=== PATIENT | male | born 1945 | race Caucasian/White ===

== ENCOUNTER 2021-02-22 10:31 | Observation (INO) | payer OTHER ==
[~2021-02-22] VITALS: Ht 167.6 cm; Wt 79.4 kg
[~2021-02-22 10:31] MED LIST: ACET325 PO; ANDROGEL75 GM TOP; ATOR40TA PO; Aspirin EC81 MG PO; CALCA400CH PO; CARV25 PO; FURO20 PO; GLIP10 PO; HYDR1TAB94 PO; HYDRA25 PO; INSULANPEN SC; ISOMON20 PO; Ipratropium Bro15 ML; LORATADINE PO; Prozac20 MG PO; VITAMIN C500 M1 PO
[2021-02-22] MEDS ORDERED: ALLO300 PO (10:54)
[2021-02-22] MEDS ORDERED: ATOR10 PO (10:55)
[2021-02-22] MEDS ORDERED: Norvasc2.5 MG PO (10:55)
[2021-02-22] MEDS ORDERED: CARV25 PO (10:55)
[2021-02-22] MEDS ORDERED: PROZAC20 M3 PO (10:56)
[2021-02-22] MEDS ORDERED: Isosorbide Mono60 MG PO (10:57)
[2021-02-22] MEDS ORDERED: BASAGLAR K100 UNIT/5 SC (10:57)
[2021-02-22] MEDS ORDERED: LIDOCAINE1 EACH TD (10:57)
[2021-02-22] MEDS ORDERED: ASPIR 8181 M1 PO (10:58)
[2021-02-22] MEDS ORDERED: Flomax0.4 MG PO (10:58)
[2021-02-22] MEDS ORDERED: LOPE2C PO (10:58)
[2021-02-22] MEDS ORDERED: TORSE20 PO (10:58)
[2021-02-22] MEDS ORDERED: CALCIUM 500 MG1 EAC6 PO (10:59)
[2021-02-22 11:20] LABS: BASOPHILS ABSOLUTE AUTO 0.04 K/mm3 (0.00-0.23); BASOPHILS PERCENT AUTO 0 % (0-2); EOSINOPHILS ABSOLUTE AUTO 0.05 K/mm3 (0.00-0.68); EOSINOPHILS PERCENT AUTO 0 % (0-6); Hematocrit 28.4 % (37.0-53.0); Hemoglobin 9.2 g/dL (13.5-17.5); IMMATURE GRAN ABSOLUTE AUTO 0.23 K/mm3 (0.00-0.10); IMMATURE GRAN PERCENT AUTO 2 % (0-1); LYMPHOCYTES ABSOLUTE AUTO 0.84 K/mm3 (0.84-5.20); LYMPHOCYTES PERCENT AUTO 7 % (21-46); MONOCYTES ABSOLUTE AUTO 0.62 K/mm3 (0.16-1.47); MONOCYTES PERCENT AUTO 5 % (4-13); Mean Corpuscular HGB 28.9 pg (26.0-34.0); Mean Corpuscular HGB Conc 32.4 g/dL (31.5-36.5); Mean Corpuscular Volume 89 fL (80-100); Mean Platelet Volume 12.6 fL (9.1-12.4); NEUTROPHILS ABSOLUTE AUTO 10.92 K/mm3 (1.96-9.15); NEUTROPHILS PERCENT AUTO 86 % (41-73); NRBC ABSOLUTE 0.03 K/mm3 (0.00-0.02); NRBC Auto 0.2 /100 WBC (0.0-0.2); Platelet Count 163 K/mm3 (150-400); RDW Coefficient Variation 15.7 % (11.7-14.2); RDW Standard Deviation 51.6 fL (35.1-46.3); Red Blood Cell Count 3.18 M/mm3 (4.30-5.90)
[2021-02-22 11:29] LABS: Alanine Aminotransfer (ALT/SGP 18 U/L (12-78); Albumin, Blood 2.8 g/dL (3.4-5.0); Albumin/Globulin Ratio 0.9 (0.8-1.8); Alk Phos 51 U/L (50-136); Anion Gap 9 mmol/L (6-16); Aspartate Aminotrans (AST/SGOT 11 U/L (12-37); Bilirubin, Total 0.6 mg/dL (0.1-1.0); Blood Urea Nitrogen 92 mg/dL (8-24); Bun/Creatinine Ratio 31.3 (12.0-20.0); CO2, Blood 21 mmol/L (21-32); Calcium, Blood 8.7 mg/dL (8.5-10.1); Chloride, Blood 108 mmol/L (98-108); Creatinine, Blood 2.94 mg/dL (0.60-1.20); Globulin, Blood 3.2 g/dL (2.2-4.0); Glomerular Filtration Rate 21 (60-); Glucose, Blood 217 mg/dL (70-99); Potassium, Blood 3.5 mmol/L (3.5-5.5); Sodium, Blood 138 mmol/L (136-145); Troponin I <0.015 ng/mL (0.000-0.040)
[2021-02-22 11:56] LABS: International Normalized Ratio 1.15; Prothrombin Time Results 12.3 Sec (9.7-11.5)
[2021-02-22 12:56] LABS: Source, Urine Catheter
[2021-02-22 13:26] LABS: Appearance, Urine Clear (Clear); Bilirubin, Urine Neg (Neg); Blood, Urine Neg (Neg); Color, Urine Yellow (P-Yellow); Glucose Qualitative, Urine Neg (Neg); Ketones, Urine Neg (Neg); Leukocyte Esterase, Urine Neg (Neg); Nitrite, Urine Neg (Neg); Protein, Urine 2+ (Neg); Specific Gravity, Urine 1.015 (1.003-1.022); Urobilinogen, Urine NORM (Normal)
[2021-02-22 13:33] LABS: Bacteria Rare /hpf; Red Blood Cells, Urine 0-2 /hpf (0-2); Squamous Epithelial Cells Rare /hpf (Few); White Blood Cells, Urine 0-2 /hpf (0-5)
[2021-02-22] MEDS ORDERED: DICLOFENAC SOD100 G1 TOP (14:48)
[2021-02-22] MEDS ORDERED: NOVOLOG FL100 UNIT/3 SC (14:56)
[2021-02-22] MEDS ORDERED: IPRATROPIUM BRO30 ML (15:04)
[2021-02-22 15:33] LABS: Prostate Specific Antigen <0.010 ng/mL (0.000-4.000)
--- NOTE | 2021-02-22 20:40 | NUR ---
DR. BOSCH IN ROOM TO ASSESS PT. MEDICAL RECORDS REQUESTED FROM [facility] PER ORDERS. PT OK TO HAVE FULL LIQS OVER NIGHT. DIET WILL CHANGE TO WATER ONLY AT 0600 THEN NPO AT NOON FOR UPPER EGD.
[2021-02-23 01:58] LABS: SARS-Cov-2 (COVID-19) PCR, MMC NEGATIVE (NEGATIVE)
[2021-02-23 04:49] LABS: BASOPHILS ABSOLUTE AUTO 0.04 K/mm3 (0.00-0.23); BASOPHILS PERCENT AUTO 1 % (0-2); EOSINOPHILS ABSOLUTE AUTO 0.11 K/mm3 (0.00-0.68); EOSINOPHILS PERCENT AUTO 1 % (0-6); Hematocrit 25.9 % (37.0-53.0); IMMATURE GRAN ABSOLUTE AUTO 0.14 K/mm3 (0.00-0.10); IMMATURE GRAN PERCENT AUTO 2 % (0-1); LYMPHOCYTES ABSOLUTE AUTO 0.76 K/mm3 (0.84-5.20); LYMPHOCYTES PERCENT AUTO 9 % (21-46); MONOCYTES ABSOLUTE AUTO 0.45 K/mm3 (0.16-1.47); MONOCYTES PERCENT AUTO 5 % (4-13); Mean Corpuscular HGB 28.6 pg (26.0-34.0); Mean Corpuscular HGB Conc 30.9 g/dL (31.5-36.5); Mean Corpuscular Volume 93 fL (80-100); Mean Platelet Volume 12.2 fL (9.1-12.4); NEUTROPHILS ABSOLUTE AUTO 6.78 K/mm3 (1.96-9.15); NEUTROPHILS PERCENT AUTO 82 % (41-73); NRBC ABSOLUTE 0.03 K/mm3 (0.00-0.02); NRBC Auto 0.4 /100 WBC (0.0-0.2); Platelet Count 158 K/mm3 (150-400); RDW Coefficient Variation 15.9 % (11.7-14.2); RDW Standard Deviation 54.4 fL (35.1-46.3); White Blood Cell Count 8.28 K/mm3 (4.00-11.30)
--- NOTE | 2021-02-23 04:49 | NUR ---
SHIFT SUMMARY: PT HAS BEEN STABLE THROUGHOUT SHIFT. A&O X4. VS WNL. CBG'S STABLE W/O Q6 COVERAGE NEEDED. PT REPORTS PAIN IN RIGHT SIDE ABD, BUT TOLERABLE. MOORE CATHETER INSERTED IN BEGINNING OF SHIFT PER ORDERS AND IS DRAINING CLEAR YELLOW URINE. IVF INFUSING PER EMAR. PLAN FOR SIPS+CHIPS AFTER 0600 THEN NPO AT 1200 FOR UPPER EGD TODAY.
[2021-02-23 05:10] LABS: Albumin, Blood 2.3 g/dL (3.4-5.0); Albumin/Globulin Ratio 0.8 (0.8-1.8); Bilirubin, Total 0.4 mg/dL (0.1-1.0); Bun/Creatinine Ratio 29.2 (12.0-20.0); Calcium, Blood 8.1 mg/dL (8.5-10.1); Creatinine, Blood 2.74 mg/dL (0.60-1.20); Globulin, Blood 2.8 g/dL (2.2-4.0); Magnesium, Blood 2.6 mg/dL (1.6-2.4); Potassium, Blood 3.9 mmol/L (3.5-5.5); Total Protein, Blood 5.1 g/dL (6.4-8.2)
--- NOTE | 2021-02-23 08:27 | NUR ---
DR ADLER CALLED TO DISCUSS PT'S VS AND BP MEDS. DISCUSSED PT'S VS, LABS. REPORTS TO ORDER STAT H+H. LAB NOTIFIED.
[2021-02-23 08:43] LABS: Hematocrit 26.2 % (37.0-53.0); Hemoglobin 8.1 g/dL (13.5-17.5)
--- NOTE | 2021-02-23 15:04 | NUR ---
PT RECENTLY TO HAVE PROCEDURE. DISCUSSED PT'S STATUS.
--- NOTE | 2021-02-23 15:09 | NUR ---
PT TRANSFERED TO [facility] FROM FLOOR VIA [facility]. History, Chart, Medications and Allergies reviewed before start of procedure. Lungs clear T/O to Auscultation. Patient confirms NPO status and agrees with scheduled surgery. Pre-Op teaching done. Pt verbalizes understanding.
--- NOTE | 2021-02-23 16:38 | NUR ---
02/23/21 1638 AnjuSachi R History, Chart, Medications and Allergies reviewed before start of procedure.Patient confirms NPO status and agrees with scheduled surgery.3-LEAD EKG REVIEWED WITH PHYSICIAN PRIOR TO START OF PROCEDURE.MONITOR INTACT WITH CONTINUOUS PULSE OXIMETRY AND INTERMITTENT BP.O2 VIA N/C INTACT THROUGHOUT SEDATION/PROCEDURE. PATIENT DETERMINED TO BE ASA APPROPRIATE FOR PROPOFOL SEDATION PRIOR TO START OF PROCEDURE BY DR. BOSCH
--- NOTE | 2021-02-23 17:40 | NUR ---
PT RECENTLY BACK FROM HAVING PROCEDURE. DR BOSCH TO SEE PT. REPORTS PT MAY EAT TONIGHT. PT VSS. PT DENIES CP, SOB, N/V, DIZZINESS. PT ASSISTED WITH ADL'S. PAS PLACED. ALARM IN PLACE.
--- NOTE | 2021-02-23 17:43 | NUR ---
CALL LIGHT IN REACH
--- NOTE | 2021-02-24 04:18 | NUR ---
SHIFT SUMMARY: NO SIGNIFICANT CHANGES THIS SHIFT. PT S/P UPPER EGD. DENIES ABD PAIN T/O NIGHT. TOLERATING ADA DIET AND DENIES N/V. VS WNL. MOORE PATENT AND DRAINING. PT CURRENTLY APPEARS TO BE RESTING. FLUIDS INFUSING PER EMAR. PLAN FOR PT TO START PROTONIX TODAY.
--- NOTE | 2021-02-24 18:28 | NUR ---
SHIFT SUMMARY PATIENT ALERT WHEN AWAKE THROUGHOUT SHIFT. ORIENTED. TOOK SEVERAL NAPS. DENIES ABD PAIN, TOLERATING REGULAR DIET AND FLUIDS. SALINE LOCKED. RETAINING URINE AFTER MOORE DC'D. POST VOID BLADDER SCAN SHOWED MORE THAN 640 REMAINING. STRAIGHT CATH 1000 ML OUT. PLAN TO DISCHARGE HOME TOMORROW IF URINE RETENTION RESOLVES.
--- NOTE | 2021-02-25 07:48 | NUR ---
SHIFT SUMMARY: ANIA IS A&OX4. VSS, NO ACUTE EVENTS OVERNIGHT. HE STATES THAT HE IS ABLE TO URINATE MORE AT A TIME AT HOME BECAUSE HE WAITS UNTIL HE FEELS STRONG URGENCY AND THAT AMBULATING HELPS. HE WAS AMBULATED AROUND THE ROOM AND SAT UP IN THE CHAIR, AND WAS ABLE TO URINATE 400 ML, MORE THAN HE HAD PREVIOUSLY BEEN ABLE TO URINATE DURING THE NIGHT AT ONE TIME. HE IS TOLERATING PO INTAKE WELL, DENIES ANY DIZZINESS/LIGHTHEADEDNESS OR PAIN. HE IS SITTING UP IN THE CHAIR AT THE BEDSIDE. HE DOES USE THE WALKER TO AMBULATE, STATES THAT HE USES A CANE AT HOME, STANDBY ASSIST. REPORT GIVEN TO DAY SHIFT RN.
--- NOTE | 2021-02-25 12:09 | NUR ---
DISCHARGE SUMMARY PT A&OX4, VSS, LEFT FLOOR VIA WC WITH PRODUCT MARKETING DIRECTOR TO GO HOME WITH , WITH ALL PERSONAL POSSESSIONS INCLUDING DC PACKET. DC INSTRUCTIONS PROVIDED. PT REP UNDERSTANDING THOSE INSTRUCTIONS AND FU WITH [facility] DR. DAYDAY GUNTER.
== END 2021-02-25 11:15 | disposition home or self-care (01) ==
LOC: ER 10:31 → SURS 10:32 → ERHOLD 10:32 → SURS 10:33 → ERHOLD 14:56 → SURS 14:56 → ER 14:56 → SURS 17:30 → ERHOLD 17:35 → SURS 17:35
PROVIDERS: Internal Medicine; Internal Medicine Gastroenterology; Nurse Practitioner Acute Care; Student in an Organized Health Care Education/Training Program; ADMIT Hospitalist
PROC: 0DB98ZX Excision of Duodenum, Via Natural or Artificial Opening Endoscopic, Diagnostic (ICD-10-PCS; principal; 2021-02-23 15:45)
PROC: 0DB68ZX Excision of Stomach, Via Natural or Artificial Opening Endoscopic, Diagnostic (ICD-10-PCS; principal; 2021-02-23 15:45)
DX: K26.9 Duodenal ulcer, unspecified as acute or chronic, without hemorrhage or perforation (principal); K29.80 Duodenitis without bleeding; D72.829 Elevated white blood cell count, unspecified; I13.0 Hypertensive heart and chronic kidney disease with heart failure and stage 1 through stage 4 chronic kidney disease, or unspecified chronic kidney disease; N17.9 Acute kidney failure, unspecified; I50.22 Chronic systolic (congestive) heart failure; E11.22 Type 2 diabetes mellitus with diabetic chronic kidney disease; N18.30 Chronic kidney disease, stage 3 unspecified; N40.1 Benign prostatic hyperplasia with lower urinary tract symptoms; R33.8 Other retention of urine; D62 Acute posthemorrhagic anemia; R93.3 Abnormal findings on diagnostic imaging of other parts of digestive tract; M10.9 Gout, unspecified; E78.5 Hyperlipidemia, unspecified; I25.10 Atherosclerotic heart disease of native coronary artery without angina pectoris; G47.33 Obstructive sleep apnea (adult) (pediatric); Z79.4 Long term (current) use of insulin; Z87.891 Personal history of nicotine dependence; Z86.010 Personal history of colon polyps; Z20.822 Contact with and (suspected) exposure to COVID-19
CPT/HCPCS: 36415; 51701; 74177; 80053; 81001; 82947; 83690; 83735; 84153; 84484; 85014; 85018; 85025; 85610; 85730; 88305; 88342; 93005; 93010; 96361; 96365-59; 96367; 96375; 99285-25; A9270; C9113; G0378; J0696; J2405; J2704; J3010; J7030; Q9967; U0004

== ENCOUNTER 2023-02-21 18:11 | Inpatient (IN) | payer OTHER ==
[~2023-02-21] VITALS: Ht 165.1 cm; Wt 74.5 kg
[~2023-02-21 18:11] MED LIST changes: +ALLO300 PO; +ASPIR 8181 M1 PO; +ATOR10 PO; +BASAGLAR K100 UNIT/5 SC; +CALCIUM 250-D1 EAC1 PO; +DICLOFENAC SOD100 G1 TOP; +Flomax0.4 MG PO; +IPRATROPIUM BRO30 ML; +Isosorbide Mono60 MG PO; +Keflex500 MG PO; +LIDOCAINE1 EACH TD; +LOPE2C PO; +NOVOLOG FL100 UNIT/3 SC; +Norvasc2.5 MG PO; +PROZAC20 M3 PO; +Percocet 5-3251 EACH PO; +TORS10 PO
[2023-02-21 18:56] LABS: Hematocrit 35.1 % (37.0-53.0); Hemoglobin 12.1 g/dL (13.5-17.5); Mean Corpuscular HGB 29.7 pg (26.0-34.0); Mean Corpuscular HGB Conc 34.5 g/dL (31.5-36.5); Mean Corpuscular Volume 86 fL (80-100); NRBC ABSOLUTE 0.02 K/mm3 (0.00-0.02); NRBC Auto 0.4 /100 WBC (0.0-0.2); RDW Coefficient Variation 14.6 % (11.7-14.2); RDW Standard Deviation 46.5 fL (35.1-46.3); Red Blood Cell Count 4.07 M/mm3 (4.30-5.90); White Blood Cell Count 5.35 K/mm3 (4.00-11.30)
[2023-02-21 19:14] LABS: Albumin, Blood 4.8 g/dL (3.4-5.0); Albumin/Globulin Ratio 2.2 (0.8-1.8); Bilirubin, Total 0.8 mg/dL (0.1-1.0); Bun/Creatinine Ratio 22.6 (12.0-20.0); Calcium, Blood 10.3 mg/dL (8.5-10.1); Creatinine, Blood 1.86 mg/dL (0.60-1.20); Globulin, Blood 2.2 g/dL (2.2-4.0)
[2023-02-21 19:15] LABS: Platelet Count 20 K/mm3 (150-400)
[2023-02-21 19:18] LABS: BASOPHILS PERCENT MAN 0 % (0-2); EOSINOPHILS ABSOLUTE MAN 0.21 K/mm3 (0.00-0.68); EOSINOPHILS PERCENT MAN 4 % (0-6); LYMPHOCYTES % ATYPICAL MANUAL 2 % (0-0); LYMPHOCYTES ABSOLUTE MAN 0.48 K/mm3 (0.84-5.20); LYMPHOCYTES PERCENT MAN 7 % (21-46); MONOCYTES PERCENT MAN 2 % (4-13); NEUTROPHILS ABSOLUTE MAN 4.54 K/mm3 (1.96-9.15); SEG NEUTROPHILS PERCENT MAN 85 % (41-73); TOTAL CELLS COUNTED 100
[2023-02-21 19:29] LABS: International Normalized Ratio 1.12; Prothrombin Time Results 11.7 Sec (9.7-11.5)
--- NOTE | 2023-02-21 23:39 | NUR ---
PT CHART REVIEWED FOR ADMISSION
[2023-02-22 00:15] VITALS: BP 158/57
[2023-02-22] MEDS ORDERED: ALOGLIPTIN12.5 M1 PO (00:33)
[2023-02-22] MEDS ORDERED: AZIT500 PO (00:34)
[2023-02-22] MEDS ORDERED: PROBIOTIC PO (00:36)
[2023-02-22] MEDS ORDERED: COLOSTRUM PO (00:36)
[2023-02-22] MEDS ORDERED: CAPSAICIN TOP (00:37)
[2023-02-22] MEDS ORDERED: FERSU300 PO (00:38)
[2023-02-22] MEDS ORDERED: LOPE2C PO (00:40)
[2023-02-22] MEDS ORDERED: LORA10ER PO (00:40)
[2023-02-22] MEDS ORDERED: MULTI-VITAMIN1 EAC2 PO (00:41)
[2023-02-22] MEDS ORDERED: JAKAFI15 MG PO (00:43)
[2023-02-22 04:52] VITALS: BP 165/63
--- NOTE | 2023-02-22 05:31 | NUR ---
SHIFT SUMMARY PT ARRIVED ON UNIT AT 0011 DURING DOWNTIME. NO PRESSURE INJURIES, SOME SCATTERED BRUISING. PT AAOX3. PT STATES HE NORMALLY USES A CANE FOR AMBULATION. PT UNSTEADY ON FEET REQUIRING A 1 PERSON ASSIST. NO C/O PAIN, NO STOOLS THIS SHIFT. FIRE SAFETY EDUCATION PROVIDED, NO SOURCES OF IGNITION FOUND ON Q1H FIRE SAFETY ROUNDS.
[2023-02-22 05:46] LABS: Hematocrit 31.9 % (37.0-53.0); Hemoglobin 10.8 g/dL (13.5-17.5)
[2023-02-22 06:04] VITALS: BP 142/49
[2023-02-22 07:44] VITALS: BP 151/60
[2023-02-22 11:14] LABS: Hematocrit 31.2 % (37.0-53.0); Hemoglobin 10.7 g/dL (13.5-17.5)
[2023-02-22 15:28] VITALS: BP 141/62
--- NOTE | 2023-02-22 16:20 | NUR ---
SHIFT SUMMARY PATIENT UP WITH 1 ASSIST, UNSTEADY. BLOOD GLUCOSE MONITORING ORDERED START OF DINNER THIS SHIFT, HEMATOLOGY CONSULT CALLED IN PER DR SAUCEDO ORDERS. C/O HEADACHE SEVERAL TIMES THIS SHIFT, MODERATE RELIEF WITH MEDICATIONS AND RESTFUL PERIODS. PROTONIX DRIP CONTINUES. WILL CONTINUE TO MONITOR
[2023-02-22 17:49] LABS: Hematocrit 30.2 % (37.0-53.0); Hemoglobin 10.1 g/dL (13.5-17.5)
[2023-02-22 20:04] VITALS: BP 125/57
[2023-02-22 23:43] LABS: Hematocrit 29.9 % (37.0-53.0)
[2023-02-23 04:44] VITALS: BP 123/59
[2023-02-23 05:25] LABS: BASOPHILS ABSOLUTE AUTO 0.02 K/mm3 (0.00-0.23); BASOPHILS PERCENT AUTO 0 % (0-2); EOSINOPHILS ABSOLUTE AUTO 0.11 K/mm3 (0.00-0.68); EOSINOPHILS PERCENT AUTO 2 % (0-6); Hematocrit 28.3 % (37.0-53.0); Hemoglobin 9.7 g/dL (13.5-17.5); IMMATURE GRAN ABSOLUTE AUTO 0.04 K/mm3 (0.00-0.10); IMMATURE GRAN PERCENT AUTO 1 % (0-1); LYMPHOCYTES ABSOLUTE AUTO 0.44 K/mm3 (0.84-5.20); LYMPHOCYTES PERCENT AUTO 7 % (21-46); MONOCYTES ABSOLUTE AUTO 0.33 K/mm3 (0.16-1.47); MONOCYTES PERCENT AUTO 5 % (4-13); Mean Corpuscular HGB 29.5 pg (26.0-34.0); Mean Corpuscular HGB Conc 34.3 g/dL (31.5-36.5); Mean Corpuscular Volume 86 fL (80-100); NEUTROPHILS ABSOLUTE AUTO 5.28 K/mm3 (1.96-9.15); NEUTROPHILS PERCENT AUTO 85 % (41-73); NRBC ABSOLUTE 0.02 K/mm3 (0.00-0.02); NRBC Auto 0.3 /100 WBC (0.0-0.2); RDW Coefficient Variation 14.7 % (11.7-14.2); RDW Standard Deviation 46.5 fL (35.1-46.3); Red Blood Cell Count 3.29 M/mm3 (4.30-5.90); White Blood Cell Count 6.22 K/mm3 (4.00-11.30)
[2023-02-23 05:41] LABS: Platelet Count 20 K/mm3 (150-400)
[2023-02-23 05:56] LABS: Albumin, Blood 3.7 g/dL (3.4-5.0); Anion Gap 6 mmol/L (6-16); Blood Urea Nitrogen 40 mg/dL (8-24); Bun/Creatinine Ratio 18.7 (12.0-20.0); CO2, Blood 22 mmol/L (21-32); Calcium, Blood 8.5 mg/dL (8.5-10.1); Chloride, Blood 111 mmol/L (98-108); Creatinine, Blood 2.14 mg/dL (0.60-1.20); Glomerular Filtration Rate 31 (60-); Glucose, Blood 171 mg/dL (70-99); Phosphorus, Blood 3.4 mg/dL (2.5-4.9); Potassium, Blood 4.5 mmol/L (3.5-5.5); Sodium, Blood 139 mmol/L (136-145)
--- NOTE | 2023-02-23 06:18 | NUR ---
SHIFT SUMMARY NO EVENTS OR COMPLAINTS OVERNIGHT. Q1H FIRE SAFETY CHECKS COMPLETED. NO IGNITION SOURCES FOUND
[2023-02-23 07:36] VITALS: BP 121/58
[2023-02-23] MEDS ORDERED: Norco 5-325 Ta1 EACH PO (09:10)
[2023-02-23] MEDS ORDERED: PANT40 PO (09:10)
== END 2023-02-23 11:22 | disposition home or self-care (01) | DRG 378 ==
LOC: ER 18:11 → MEDS 18:12 → ENPENDDIS 02-23 09:16 → MEDS 02-23 11:22
PROVIDERS: Emergency Medicine; Family Medicine; ADMIT Internal Medicine
DX: K92.1 Melena (principal); D62 Acute posthemorrhagic anemia; D75.81 Myelofibrosis; I13.0 Hypertensive heart and chronic kidney disease with heart failure and stage 1 through stage 4 chronic kidney disease, or unspecified chronic kidney disease; I50.22 Chronic systolic (congestive) heart failure; N18.4 Chronic kidney disease, stage 4 (severe); I16.0 Hypertensive urgency; E78.5 Hyperlipidemia, unspecified; M10.9 Gout, unspecified; T50.995A Adverse effect of other drugs, medicaments and biological substances, initial encounter; R51.9 Headache, unspecified; E11.22 Type 2 diabetes mellitus with diabetic chronic kidney disease; D69.59 Other secondary thrombocytopenia; I25.10 Atherosclerotic heart disease of native coronary artery without angina pectoris; N40.0 Benign prostatic hyperplasia without lower urinary tract symptoms; K26.9 Duodenal ulcer, unspecified as acute or chronic, without hemorrhage or perforation; M19.90 Unspecified osteoarthritis, unspecified site; I25.2 Old myocardial infarction; Z79.899 Other long term (current) drug therapy; Z79.4 Long term (current) use of insulin; Z79.891 Long term (current) use of opiate analgesic; Z79.2 Long term (current) use of antibiotics; Z90.49 Acquired absence of other specified parts of digestive tract; Z98.890 Other specified postprocedural states; Z87.891 Personal history of nicotine dependence; Z90.5 Acquired absence of kidney; Z86.018 Personal history of other benign neoplasm; Z85.828 Personal history of other malignant neoplasm of skin; Z86.16 Personal history of COVID-19; Z88.8 Allergy status to other drugs, medicaments and biological substances
CPT/HCPCS: 36415; 70450; 70496; 70498; 80053; 80069; 82947; 85014; 85018; 85025; 85610; 85730; 86316; 86850; 86900; 86901; 93005; 93010; 96374; 96375; 96376; 99285-25; A9270; C9113; G0378; J0780; J1200; J1815; Q9967

== ENCOUNTER 2023-04-25 17:23 | Inpatient (IN) | payer OTHER ==
[~2023-04-25] VITALS: Ht 165.1 cm; Wt 78.0 kg
[~2023-04-25 17:23] MED LIST changes: +ALOGLIPTIN12.5 M1 PO; +AZIT500 PO; +CAPSAICIN TOP; +COLOSTRUM PO; +FERSU300 PO; +JAKAFI15 MG PO; +LORA10ER PO; +MULTI-VITAMIN1 EAC2 PO; +Norco 5-325 Ta1 EACH PO; +PANT40 PO; +PROBIOTIC PO
[2023-04-25] MEDS ORDERED: JARDIANCE10 MG PO (18:37)
[2023-04-25] MEDS ORDERED: LOPE2C PO (18:39)
[2023-04-25] MEDS ORDERED: JAKAFI10 MG PO (18:39)
[2023-04-25 18:45] LABS: BASOPHILS ABSOLUTE AUTO 0.06 K/mm3 (0.00-0.23); BASOPHILS PERCENT AUTO 1 % (0-2); EOSINOPHILS ABSOLUTE AUTO 0.11 K/mm3 (0.00-0.68); EOSINOPHILS PERCENT AUTO 2 % (0-6); Hematocrit 24.1 % (37.0-53.0); Hemoglobin 7.9 g/dL (13.5-17.5); IMMATURE GRAN ABSOLUTE AUTO 0.06 K/mm3 (0.00-0.10); IMMATURE GRAN PERCENT AUTO 1 % (0-1); LYMPHOCYTES ABSOLUTE AUTO 1.38 K/mm3 (0.84-5.20); LYMPHOCYTES PERCENT AUTO 23 % (21-46); MONOCYTES ABSOLUTE AUTO 0.29 K/mm3 (0.16-1.47); MONOCYTES PERCENT AUTO 5 % (4-13); Mean Corpuscular HGB 29.8 pg (26.0-34.0); Mean Corpuscular HGB Conc 32.8 g/dL (31.5-36.5); Mean Corpuscular Volume 91 fL (80-100); Mean Platelet Volume 9.9 fL (9.1-12.4); NEUTROPHILS ABSOLUTE AUTO 4.04 K/mm3 (1.96-9.15); NEUTROPHILS PERCENT AUTO 68 % (41-73); NRBC ABSOLUTE 0.16 K/mm3 (0.00-0.02); NRBC Auto 2.7 /100 WBC (0.0-0.2); Platelet Count 134 K/mm3 (150-400); RDW Coefficient Variation 20.1 % (11.7-14.2); RDW Standard Deviation 65.1 fL (35.1-46.3); Red Blood Cell Count 2.65 M/mm3 (4.30-5.90); White Blood Cell Count 5.94 K/mm3 (4.00-11.30)
[2023-04-25 19:24] LABS: Albumin/Globulin Ratio 1.8 (0.8-1.8); Bilirubin, Total 0.6 mg/dL (0.1-1.0); Bun/Creatinine Ratio 13.6 (12.0-20.0); Calcium, Blood 9.2 mg/dL (8.5-10.1); Creatinine, Blood 2.2 mg/dL (0.60-1.20); Globulin, Blood 2.2 g/dL (2.2-4.0); Potassium, Blood 4.5 mmol/L (3.5-5.5); Total Protein, Blood 6.2 g/dL (6.4-8.2)
[2023-04-26 01:00] LABS: Hematocrit 25.2 % (37.0-53.0)
[2023-04-26 04:21] VITALS: BP 148/65
--- NOTE | 2023-04-26 04:55 | NUR ---
SHIFT SUMMARY ANIA ARRIVED FROM THE ED AROUND 0230. HE WAS ALERT AND FULLY ORIENTED AND ABLE TO SELF TRANSFER TO BED. HE IS ON 2L VIA NC, AND MAINTAINING SATURATIONS ABOVE 90%. PT DIURESING, HE IS CONTINENT OF URINE, INTERMITTENT INCONTINENCE OF BOWELS. 1 PERSON STANDBY ASSIST. PT IS PLEASANT AND COOPERATIVE AND HAD NO ACUTE EVENTS OR COMPLAINTS THIS SHIFT. FLU VACCINE ADMINISTERED. PT RESTING IN BED WITH CALL LIGHT IN REACH.
[2023-04-26 05:38] LABS: BASOPHILS ABSOLUTE AUTO 0.05 K/mm3 (0.00-0.23); BASOPHILS PERCENT AUTO 1 % (0-2); EOSINOPHILS ABSOLUTE AUTO 0.09 K/mm3 (0.00-0.68); EOSINOPHILS PERCENT AUTO 2 % (0-6); Hematocrit 23.4 % (37.0-53.0); Hemoglobin 7.5 g/dL (13.5-17.5); IMMATURE GRAN ABSOLUTE AUTO 0.08 K/mm3 (0.00-0.10); IMMATURE GRAN PERCENT AUTO 2 % (0-1); LYMPHOCYTES ABSOLUTE AUTO 0.68 K/mm3 (0.84-5.20); LYMPHOCYTES PERCENT AUTO 13 % (21-46); MONOCYTES ABSOLUTE AUTO 0.29 K/mm3 (0.16-1.47); MONOCYTES PERCENT AUTO 6 % (4-13); Mean Corpuscular HGB 29.2 pg (26.0-34.0); Mean Corpuscular HGB Conc 32.1 g/dL (31.5-36.5); Mean Corpuscular Volume 91 fL (80-100); Mean Platelet Volume 9.3 fL (9.1-12.4); NEUTROPHILS ABSOLUTE AUTO 3.89 K/mm3 (1.96-9.15); NEUTROPHILS PERCENT AUTO 77 % (41-73); Platelet Count 110 K/mm3 (150-400); RDW Coefficient Variation 19.9 % (11.7-14.2); RDW Standard Deviation 65.3 fL (35.1-46.3); Red Blood Cell Count 2.57 M/mm3 (4.30-5.90); White Blood Cell Count 5.08 K/mm3 (4.00-11.30)
[2023-04-26 06:06] LABS: Albumin, Blood 3.9 g/dL (3.4-5.0); Bilirubin, Total 0.7 mg/dL (0.1-1.0); Creatinine, Blood 2.15 mg/dL (0.60-1.20); Potassium, Blood 4.2 mmol/L (3.5-5.5); Total Protein, Blood 5.9 g/dL (6.4-8.2)
[2023-04-26 07:23] VITALS: BP 164/65
[2023-04-26 09:53] LABS: Percent Saturation 24.6 % (20.0-50.0)
[2023-04-26 11:31] LABS: Hematocrit 23.8 % (37.0-53.0); Hemoglobin 7.6 g/dL (13.5-17.5)
[2023-04-26 15:18] VITALS: BP 157/62
--- NOTE | 2023-04-26 17:14 | NUR ---
CALLED DR SAUCEDO- PT HERE FOR ACUTE RESP FAILURE WITH HYPOXIA. NOTED IV LASIX ORDERED ALTHOUGH FIRST DDOSE DOCUMENTED HELD PER DR REDD. NEXT DOSE SCHEDULED FOR TOMORROW MORNING AT 09[address]. SPOKE [address] DR SAUCEDO PT HAS NOT RECIEVED A DOSE TODAY AND RECIEVED AN ORDER FOR OT DOSE OF IV LASIX NOW.
[2023-04-26 17:25] VITALS: BP 156/55
[2023-04-26 17:28] LABS: Hematocrit 24.2 % (37.0-53.0); Hemoglobin 7.9 g/dL (13.5-17.5)
--- NOTE | 2023-04-26 18:10 | NUR ---
SHIFT SUMMARY- PPT ALERT, ORIENTED ANND INDEPENDENT IN THE ROOM. IV LASIX GIVEN THIS EVENING PER DR ORDER. DELAYED 1700 DOSE OF CARVEDILOL TO SEE IF HIS BP WOULD SUSTAIN WITH THE IV LASIX. PT IS CURRENTLY SITTING UP IN BED EATING DINNER NO S&S OF DISTRESS, SPOUSE AT THE BEDSIDE.
[2023-04-26 18:11] VITALS: BP 157/58
[2023-04-26 19:41] VITALS: BP 145/54
[2023-04-27] VITALS (12 sets, daily range): BP systolic 136–157; BP diastolic 49–62
--- NOTE | 2023-04-27 04:32 | NUR ---
PATIENT IS A/Ox4, PLEASANT/COOPERATIVE. NO C/O PAIN NOR DISCOMFORT STATED. VSS, SpO2 94% ON 2L VIA NC. IS INDEPENDENT IN ROOM. STATES HE DOES GET SOB AT TIMES WHEN AMBULATING. USES URINAL, LIGHT YELLOW OUTPUT. ON TELE, NORMAL SINUS IN 70-80s WITH 1 DEGREE HB. NO ACUTE CHANGES NOTED OVERNIGHT. BED LOCKED AND IN LOWEST POSITION, CALL LIGHT WITHIN REACH.
[2023-04-27 06:19] LABS: BASOPHILS ABSOLUTE AUTO 0.03 K/mm3 (0.00-0.23); BASOPHILS PERCENT AUTO 1 % (0-2); EOSINOPHILS ABSOLUTE AUTO 0.06 K/mm3 (0.00-0.68); EOSINOPHILS PERCENT AUTO 1 % (0-6); Hematocrit 22.2 % (37.0-53.0); Hemoglobin 7.2 g/dL (13.5-17.5); IMMATURE GRAN ABSOLUTE AUTO 0.05 K/mm3 (0.00-0.10); IMMATURE GRAN PERCENT AUTO 1 % (0-1); LYMPHOCYTES PERCENT AUTO 11 % (21-46); MONOCYTES ABSOLUTE AUTO 0.37 K/mm3 (0.16-1.47); MONOCYTES PERCENT AUTO 8 % (4-13); Mean Corpuscular HGB Conc 32.4 g/dL (31.5-36.5); Mean Corpuscular Volume 93 fL (80-100); Mean Platelet Volume 9.6 fL (9.1-12.4); NEUTROPHILS ABSOLUTE AUTO 3.42 K/mm3 (1.96-9.15); NEUTROPHILS PERCENT AUTO 77 % (41-73); NRBC ABSOLUTE 0.06 K/mm3 (0.00-0.02); NRBC Auto 1.4 /100 WBC (0.0-0.2); Platelet Count 84 K/mm3 (150-400); RDW Coefficient Variation 19.5 % (11.7-14.2); RDW Standard Deviation 65.9 fL (35.1-46.3); White Blood Cell Count 4.43 K/mm3 (4.00-11.30)
[2023-04-27 07:02] LABS: Albumin, Blood 3.6 g/dL (3.4-5.0); Anion Gap 5 mmol/L (6-16); Blood Urea Nitrogen 39 mg/dL (8-24); Bun/Creatinine Ratio 16.9 (12.0-20.0); CO2, Blood 28 mmol/L (21-32); Calcium, Blood 9.4 mg/dL (8.5-10.1); Chloride, Blood 111 mmol/L (98-108); Creatinine, Blood 2.31 mg/dL (0.60-1.20); Glomerular Filtration Rate 28 (60-); Glucose, Blood 143 mg/dL (70-99); Phosphorus, Blood 3.6 mg/dL (2.5-4.9); Potassium, Blood 4.1 mmol/L (3.5-5.5); Sodium, Blood 144 mmol/L (136-145)
--- NOTE | 2023-04-27 07:25 | NUR ---
ASSUMED CARE OF PT- BEDSIDE REPORT COMPLETED WITH NELY TAI. PT IN BED, WOKE TO STAFF VOICES ALEXANDER PARTICIPATED IN BEDSIDE REPORT. PT VOIDED FREQUENTLY T/OO THE NIGHT. HE STATES HE FEELS HE IS BREATHINGN BBETTER THIS MORNING WHEN COMPARED TO LAST NIGHT. PPT IN BED, CALL LIGHT IN REACH NO S&S ASH DISTRESS NOTED.
[2023-04-27 12:08] LABS: Hematocrit 20.6 % (37.0-53.0); Hemoglobin 6.7 g/dL (13.5-17.5)
--- NOTE | 2023-04-27 19:41 | NUR ---
SHIFT SUMMARY- PT ALERT, ORIENTED AND INDEPENDENT IN THE ROOM. PT HAD A BLOOD TRANSFUSION TODAY 1 UNIT OF PRBC'S, VS UNCHANGED NO S&S OF DISTRESS THROUGH THE WHOLE INFUSION. PT TOLLERATED THE EXTRA FLUID WELL. LUNG SOUNDS WERE UNCHANGED. BEDSIDE REPORT COMPLETED WITH THE NIGHT RN NO S&S OF DISTRESS AT THAT TIME. IV PROTONIX GIVEN SOON TRANSFUSION WAS COMPLETED.
[2023-04-28 03:24] VITALS: BP 129/61
--- NOTE | 2023-04-28 04:16 | NUR ---
SHIFT SUMMARY PT AWAKE, WATCHING TV, DURING SHIFT REPORT. DENIED NEEDS. REPORTED BEING INDEPENDENT IN RM AND TO BTHRM NEEDED; PT USING URINAL IN BATHRM. REPORTED FEELING BETTER. PER REPORT, PT RECEIVED 1 UNIT PRBC'S TODAY. LUNGS T/O WITH FINE CRACKLES IN BASES. RESTING QUIETLY MOST OF THE NIGHT, TP PRESENT. CALL LT IN REACH.
[2023-04-28 06:56] LABS: Albumin, Blood 3.5 g/dL (3.4-5.0); Anion Gap 6 mmol/L (6-16); Blood Urea Nitrogen 48 mg/dL (8-24); Bun/Creatinine Ratio 20.2 (12.0-20.0); CO2, Blood 24 mmol/L (21-32); Calcium, Blood 9.1 mg/dL (8.5-10.1); Chloride, Blood 111 mmol/L (98-108); Creatinine, Blood 2.38 mg/dL (0.60-1.20); Glomerular Filtration Rate 27 (60-); Glucose, Blood 137 mg/dL (70-99); Phosphorus, Blood 3.3 mg/dL (2.5-4.9); Potassium, Blood 4.8 mmol/L (3.5-5.5); Sodium, Blood 141 mmol/L (136-145)
[2023-04-28 07:27] LABS: BASOPHILS ABSOLUTE AUTO 0.02 K/mm3 (0.00-0.23); BASOPHILS PERCENT AUTO 1 % (0-2); EOSINOPHILS ABSOLUTE AUTO 0.04 K/mm3 (0.00-0.68); EOSINOPHILS PERCENT AUTO 1 % (0-6); Hematocrit 22.7 % (37.0-53.0); Hemoglobin 7.5 g/dL (13.5-17.5); IMMATURE GRAN ABSOLUTE AUTO 0.03 K/mm3 (0.00-0.10); IMMATURE GRAN PERCENT AUTO 1 % (0-1); LYMPHOCYTES ABSOLUTE AUTO 0.52 K/mm3 (0.84-5.20); LYMPHOCYTES PERCENT AUTO 17 % (21-46); MONOCYTES ABSOLUTE AUTO 0.32 K/mm3 (0.16-1.47); MONOCYTES PERCENT AUTO 11 % (4-13); Mean Corpuscular HGB 29.9 pg (26.0-34.0); Mean Corpuscular Volume 90 fL (80-100); NEUTROPHILS PERCENT AUTO 69 % (41-73); NRBC ABSOLUTE 0.04 K/mm3 (0.00-0.02); NRBC Auto 1.3 /100 WBC (0.0-0.2); Platelet Count 68 K/mm3 (150-400); RDW Coefficient Variation 18.2 % (11.7-14.2); RDW Standard Deviation 60.1 fL (35.1-46.3); Red Blood Cell Count 2.51 M/mm3 (4.30-5.90); White Blood Cell Count 3.03 K/mm3 (4.00-11.30)
[2023-04-28 07:30] VITALS: BP 126/56
--- NOTE | 2023-04-28 17:53 | NUR ---
DAYSHIFT SUMMARY Patient alert & oriented, no acute changes to patient status. Titrated O2 to 1lpm, sats stable. Vitals stable. Possible DC home tomorrow. Will continue plan of care.
[2023-04-28 19:18] VITALS: BP 133/54
[2023-04-29 03:04] VITALS: BP 120/53
--- NOTE | 2023-04-29 04:53 | NUR ---
SHIFT SUMMARY: PT IS ADMITTED FOR ACUTE HYPOXIC RESPIRATORY FAILURE AND IS A FULL CODE. IS ALERT AND ABLE TO MAKE NEEDS KNOWN. UP ADLIB FOR RESTROOM USE NOT ASKING FOR STAFF HELP. HE DID REPORT TO THIS LN THAT HE IS SHORT OF BREATH FOR A SHORT PERIOD AFTER A BATHROOM RUN. IS CURRENTLY ON 1LPM OF O2. DENIES ANY OTHER PAIN OR DISCOMFORT. IV TO RIGHT FOREARM IS PATENT WITH A CDI DRESSING. DAYDAY REPORTS 1ST DEG BLOCK @76.
[2023-04-29 05:26] LABS: Hematocrit 21.7 % (37.0-53.0); Hemoglobin 7.1 g/dL (13.5-17.5); Mean Corpuscular HGB 29.8 pg (26.0-34.0); Mean Corpuscular HGB Conc 32.7 g/dL (31.5-36.5); Mean Corpuscular Volume 91 fL (80-100); NRBC ABSOLUTE 0.04 K/mm3 (0.00-0.02); NRBC Auto 1.4 /100 WBC (0.0-0.2); Platelet Count 69 K/mm3 (150-400); RDW Coefficient Variation 18.3 % (11.7-14.2); RDW Standard Deviation 60.5 fL (35.1-46.3); Red Blood Cell Count 2.38 M/mm3 (4.30-5.90); White Blood Cell Count 2.85 K/mm3 (4.00-11.30)
[2023-04-29 07:28] VITALS: BP 129/55
[2023-04-29 11:12] LABS: Hematocrit 22.2 % (37.0-53.0); Hemoglobin 7.2 g/dL (13.5-17.5)
[2023-04-29 15:26] VITALS: BP 134/56
== END 2023-04-29 18:45 | disposition home or self-care (01) | DRG 291 ==
LOC: ER 17:23 → MEDS 23:14
PROVIDERS: Emergency Medicine; Family Medicine; Internal Medicine; ADMIT Internal Medicine
PROC: 30233N1 Transfusion of Nonautologous Red Blood Cells into Peripheral Vein, Percutaneous Approach (ICD-10-PCS; principal; 2023-04-25)
DX: I13.0 Hypertensive heart and chronic kidney disease with heart failure and stage 1 through stage 4 chronic kidney disease, or unspecified chronic kidney disease (principal); I50.43 Acute on chronic combined systolic (congestive) and diastolic (congestive) heart failure; J96.01 Acute respiratory failure with hypoxia; D62 Acute posthemorrhagic anemia; D61.818 Other pancytopenia; D75.81 Myelofibrosis; N17.9 Acute kidney failure, unspecified; N18.4 Chronic kidney disease, stage 4 (severe); E87.0 Hyperosmolality and hypernatremia; N40.0 Benign prostatic hyperplasia without lower urinary tract symptoms; E11.22 Type 2 diabetes mellitus with diabetic chronic kidney disease; M10.9 Gout, unspecified; F32.A Depression, unspecified; I27.20 Pulmonary hypertension, unspecified; I25.10 Atherosclerotic heart disease of native coronary artery without angina pectoris; D45 Polycythemia vera; Z98.890 Other specified postprocedural states; Z86.018 Personal history of other benign neoplasm; Z88.8 Allergy status to other drugs, medicaments and biological substances; Z79.899 Other long term (current) drug therapy; Z79.4 Long term (current) use of insulin; Z79.891 Long term (current) use of opiate analgesic; I25.2 Old myocardial infarction; Z90.49 Acquired absence of other specified parts of digestive tract; Z87.891 Personal history of nicotine dependence; Z90.5 Acquired absence of kidney; Z87.19 Personal history of other diseases of the digestive system
CPT/HCPCS: 36415; 36430; 71046; 80053; 80069; 82607; 82728; 82746; 83540; 83550; 83880; 84484; 85014; 85018; 85025; 85027; 85379; 86850; 86900; 86901; 86923; 93306; 94760; 94761; 99285-25; A9270; C9113; J1815; J1940; J7040; P9016; Q2036

== ENCOUNTER 2023-05-25 15:38 | Emergency (ER) | payer OTHER ==
[~2023-05-25] VITALS: Ht 167.6 cm; Wt 79.4 kg
[~2023-05-25 15:38] MED LIST changes: +JAKAFI10 MG PO; +JARDIANCE10 MG PO
[2023-05-25 16:18] LABS: BASOPHILS ABSOLUTE AUTO 0.02 K/mm3 (0.00-0.23); BASOPHILS PERCENT AUTO 1 % (0-2); EOSINOPHILS ABSOLUTE AUTO 0.11 K/mm3 (0.00-0.68); EOSINOPHILS PERCENT AUTO 3 % (0-6); Hematocrit 22.7 % (37.0-53.0); Hemoglobin 7.5 g/dL (13.5-17.5); IMMATURE GRAN ABSOLUTE AUTO 0.04 K/mm3 (0.00-0.10); IMMATURE GRAN PERCENT AUTO 1 % (0-1); LYMPHOCYTES PERCENT AUTO 22 % (21-46); MONOCYTES PERCENT AUTO 6 % (4-13); Mean Corpuscular HGB 30.7 pg (26.0-34.0); Mean Corpuscular Volume 93 fL (80-100); Mean Platelet Volume 9.4 fL (9.1-12.4); NEUTROPHILS ABSOLUTE AUTO 2.43 K/mm3 (1.96-9.15); NEUTROPHILS PERCENT AUTO 67 % (41-73); NRBC ABSOLUTE 0.09 K/mm3 (0.00-0.02); NRBC Auto 2.5 /100 WBC (0.0-0.2); Platelet Count 80 K/mm3 (150-400); RDW Coefficient Variation 18.7 % (11.7-14.2); RDW Standard Deviation 62.1 fL (35.1-46.3); Red Blood Cell Count 2.44 M/mm3 (4.30-5.90)
[2023-05-25 16:45] LABS: Albumin, Blood 3.6 g/dL (3.4-5.0); Albumin/Globulin Ratio 1.5 (0.8-1.8); Bilirubin, Total 0.4 mg/dL (0.1-1.0); Calcium, Blood 9.6 mg/dL (8.5-10.1); Creatinine, Blood 2.19 mg/dL (0.60-1.20); Globulin, Blood 2.4 g/dL (2.2-4.0); Potassium, Blood 4.1 mmol/L (3.5-5.5)
[2023-05-25 19:45] VITALS: BP 141/59
== END 2023-05-25 20:09 | disposition home or self-care (01) ==
LOC: ER 15:38
PROVIDERS: Physician Assistant
DX: D64.9 Anemia, unspecified (principal); Z88.8 Allergy status to other drugs, medicaments and biological substances; Z79.899 Other long term (current) drug therapy; Z79.4 Long term (current) use of insulin; M10.9 Gout, unspecified; I13.0 Hypertensive heart and chronic kidney disease with heart failure and stage 1 through stage 4 chronic kidney disease, or unspecified chronic kidney disease; N18.30 Chronic kidney disease, stage 3 unspecified; E78.5 Hyperlipidemia, unspecified; E11.22 Type 2 diabetes mellitus with diabetic chronic kidney disease; I50.22 Chronic systolic (congestive) heart failure; I25.2 Old myocardial infarction; Z87.891 Personal history of nicotine dependence
CPT/HCPCS: 71046; 80053; 83880; 84484; 85025; 86850; 86900; 86901; 93005; 93010; 99285-25

== ENCOUNTER 2023-09-01 04:56 | Day surgery (SDC) | payer OTHER ==
[2023-08-30 14:24] LABS: Hemoglobin 6.2 g/dL (13.5-17.5); Mean Corpuscular HGB 30.5 pg (26.0-34.0); Mean Corpuscular HGB Conc 32.6 g/dL (31.5-36.5); Mean Corpuscular Volume 94 fL (80-100); NRBC ABSOLUTE 0.11 K/mm3 (0.00-0.02); NRBC Auto 3.7 /100 WBC (0.0-0.2); Platelet Count 72 K/mm3 (150-400); RDW Coefficient Variation 20.5 % (11.7-14.2); RDW Standard Deviation 67.9 fL (35.1-46.3); Red Blood Cell Count 2.03 M/mm3 (4.30-5.90); White Blood Cell Count 2.94 K/mm3 (4.00-11.30)
[2023-08-30 14:32] LABS: Albumin, Blood 4.1 g/dL (3.4-5.0); Bilirubin, Total 0.8 mg/dL (0.1-1.0); Bun/Creatinine Ratio 16.3 (12.0-20.0); Calcium, Blood 9.7 mg/dL (8.5-10.1); Creatinine, Blood 2.15 mg/dL (0.60-1.20); Potassium, Blood 4.5 mmol/L (3.5-5.5); Total Protein, Blood 6.1 g/dL (6.4-8.2)
[2023-08-30 15:17] LABS: BAND PERCENT MAN 1 % (0-8); BASOPHILS PERCENT MAN 0 % (0-2); EOSINOPHILS PERCENT MAN 0 % (0-6); LYMPHOCYTES ABSOLUTE MAN 1.08 K/mm3 (0.84-5.20); LYMPHOCYTES PERCENT MAN 37 % (21-46); METAMYELOCYTE ABSOLUTE MAN 0.05 K/mm3 (0.00-0.00); METAMYELOCYTE PERCENT MAN 2 % (0-0); MONOCYTES ABSOLUTE MAN 0.05 K/mm3 (0.16-1.47); MONOCYTES PERCENT MAN 2 % (4-13); NEUTROPHILS ABSOLUTE MAN 1.73 K/mm3 (1.96-9.15); SEG NEUTROPHILS PERCENT MAN 58 % (41-73); TOTAL CELLS COUNTED 100
[2023-09-01] VITALS (7 sets, daily range): BP systolic 108–139; BP diastolic 41–61
[2023-09-01] MEDS ORDERED: NS 250 ML IV SCH (06:50)
== END 2023-09-01 17:45 | disposition home or self-care (01) ==
LOC: ATC 04:56 → EDSTATUS 07-12 12:00 → LAB FUT 07-12 12:00
PROVIDERS: Internal Medicine Hematology & Oncology
DX: D47.1 Chronic myeloproliferative disease (principal); R16.1 Splenomegaly, not elsewhere classified; D69.6 Thrombocytopenia, unspecified; D63.8 Anemia in other chronic diseases classified elsewhere; I13.0 Hypertensive heart and chronic kidney disease with heart failure and stage 1 through stage 4 chronic kidney disease, or unspecified chronic kidney disease; E11.22 Type 2 diabetes mellitus with diabetic chronic kidney disease; N18.4 Chronic kidney disease, stage 4 (severe); I50.9 Heart failure, unspecified; E78.5 Hyperlipidemia, unspecified; I25.10 Atherosclerotic heart disease of native coronary artery without angina pectoris; Z87.891 Personal history of nicotine dependence; Z86.16 Personal history of COVID-19
CPT/HCPCS: 36415; 80053; 85025; 86850; 86900; 86901; 86923; J7050; P9016

== ENCOUNTER → 2024-01-16 | Outpatient (CLI) | payer OTHER ==
[~2024-01-16] MED LIST changes: +Acetaminophen650 M1 PO; +CAPSAICIN60 G1 TOP; +CEFD300 PO; +LEVO750 PO; +ONDA4 PO; +REFRESH TEARS P10 ML BOTHEYES; +TAMS.4ER PO; +THERA-D2000 UNIT PO; +VONJO100 MG PO
[2024-01-16 16:27] LABS: Source, Urine Voided
[2024-01-16 17:24] LABS: Appearance, Urine Hazy (Clear); Bilirubin, Urine Neg (Neg); Blood, Urine 2+ (Neg); Glucose Qualitative, Urine 4+ (Neg); Ketones, Urine Neg (Neg); Leukocyte Esterase, Urine 3+ (Neg); Nitrite, Urine Neg (Neg); Protein, Urine 2+ (Neg); Urobilinogen, Urine NORM (Normal)
[2024-01-16 17:45] LABS: Color, Urine Pale Yellow (P-Yellow); White Blood Cells, Urine TNTC /hpf (0-5)
[2024-01-16 17:46] LABS: Bacteria Few /hpf; Squamous Epithelial Cells Rare /hpf (Few); Yeast/Fungi Urine Many /hpf
== END | disposition home or self-care (01) ==
LOC: LAB 16:24 → LAB SHORT 16:24
PROVIDERS: Hospitalist
DX: N18.4 Chronic kidney disease, stage 4 (severe) (principal); R39.9 Unspecified symptoms and signs involving the genitourinary system
CPT/HCPCS: 81001; 87086; 87106

== ENCOUNTER 2024-07-16 09:01 | Day surgery (SDC) | payer OTHER ==
[~2024-07-16] VITALS: Ht 165.1 cm; Wt 72.4 kg
[~2024-07-16 09:01] MED LIST changes: +Balanced Salt Epinephrine Irrigation Solution 500 mL IR SCH; +Lidocaine HCl/Pf 1% 5 ML VIAL XX SCH; +Moxifloxacin HCL 0.5 MG/0.1 ML 0.4MLSYR LEFTEYE SCH; +PHENYLEPHRINE\\TROPICAMIDE\\TETRACAINE OPHTHALMIC DILATING SOLN LEFTEYE PRN; +Povidone-Iodine 450 DROP/30 ML Solution LEFTEYE SCH; +Povidone-Iodine 450 DROP/30 ML Solution ONE; +Tetracaine HCl/Pf 0.5% Opth Soln 4 ml ONE
[2024-07-16] MEDS ORDERED: Diazepam 2 MG Tab ONE (09:05)
[2024-07-16] MEDS ORDERED: Diazepam 5 MG Tab ONE (09:05)
--- NOTE | 2024-07-16 09:40 | NUR ---
07/16/24 0940 Maria Eugenia Childs ANXIETY REASSESED, PT RATES ANXIETY BELOW A 3 AT THIS TIME.
--- NOTE | 2024-07-16 10:14 | NUR ---
07/16/24 1014 Venkat Ibanez, BLOOD SUGAR WAS LOW IN PREOP PER HADNOFF REPORT BY OR.
[2024-07-16 10:15] VITALS: BP 108/53
== END 2024-07-16 10:35 | disposition home or self-care (01) ==
LOC: ORSCSDS 09:01
PROVIDERS: Student in an Organized Health Care Education/Training Program
PROC: 08RK3JZ Replacement of Left Lens with Synthetic Substitute, Percutaneous Approach (ICD-10-PCS; principal; 2024-07-16 10:30)
DX: E10.36 Type 1 diabetes mellitus with diabetic cataract (principal); H25.812 Combined forms of age-related cataract, left eye; H21.81 Floppy iris syndrome; I10 Essential (primary) hypertension; I25.10 Atherosclerotic heart disease of native coronary artery without angina pectoris; G47.33 Obstructive sleep apnea (adult) (pediatric); I25.2 Old myocardial infarction; I50.9 Heart failure, unspecified; Z79.85 Long-term (current) use of injectable non-insulin antidiabetic drugs; Z79.4 Long term (current) use of insulin; Z79.84 Long term (current) use of oral hypoglycemic drugs; Z79.899 Other long term (current) drug therapy
CPT/HCPCS: 82947; A9270; V2632

== ENCOUNTER 2024-10-18 03:52 | Day surgery (SDC) | payer OTHER ==
[2024-10-16 15:43] LABS: Percent Saturation 21.1 % (20.0-50.0)
[2024-10-18] VITALS (7 sets, daily range): BP systolic 112–125; BP diastolic 42–51
[~2024-10-18 03:52] MED LIST changes: -Balanced Salt Epinephrine Irrigation Solution 500 mL IR SCH; -Lidocaine HCl/Pf 1% 5 ML VIAL XX SCH; -Moxifloxacin HCL 0.5 MG/0.1 ML 0.4MLSYR LEFTEYE SCH; -PHENYLEPHRINE\\TROPICAMIDE\\TETRACAINE OPHTHALMIC DILATING SOLN LEFTEYE PRN; -Povidone-Iodine 450 DROP/30 ML Solution LEFTEYE SCH; -Povidone-Iodine 450 DROP/30 ML Solution ONE; -Tetracaine HCl/Pf 0.5% Opth Soln 4 ml ONE
[2024-10-18] MEDS ORDERED: NS 250 ML IV SCH (06:40)
[2024-10-18] MEDS ORDERED: TORSE20 PO (13:45)
[2024-10-18] MEDS ORDERED: POTA10T PO (13:45)
== END 2024-10-18 18:10 | disposition home or self-care (01) ==
LOC: ATC 03:52
PROVIDERS: Internal Medicine Hematology & Oncology
DX: D47.1 Chronic myeloproliferative disease (principal); I25.10 Atherosclerotic heart disease of native coronary artery without angina pectoris; E11.22 Type 2 diabetes mellitus with diabetic chronic kidney disease; I13.0 Hypertensive heart and chronic kidney disease with heart failure and stage 1 through stage 4 chronic kidney disease, or unspecified chronic kidney disease; N18.4 Chronic kidney disease, stage 4 (severe); I50.9 Heart failure, unspecified; E78.5 Hyperlipidemia, unspecified; Z79.899 Other long term (current) drug therapy
CPT/HCPCS: 36415; 36430; 82728; 83540; 83550; 85651; 86850; 86900; 86901; 86923; J7050; P9016

== ENCOUNTER 2025-02-21 16:38 | Emergency (ER) | payer OTHER ==
[~2025-02-21] VITALS: Ht 165.1 cm; Wt 74.8 kg
[~2025-02-21 16:38] MED LIST changes: +POTA10T PO; +TORSE20 PO
[2025-02-21 17:13] LABS: BASOPHILS ABSOLUTE AUTO 0.05 K/mm3 (0.00-0.23); BASOPHILS PERCENT AUTO 1 % (0-2); EOSINOPHILS ABSOLUTE AUTO 0.21 K/mm3 (0.00-0.68); EOSINOPHILS PERCENT AUTO 3 % (0-6); Hematocrit 29.5 % (37.0-53.0); Hemoglobin 8.8 g/dL (13.5-17.5); IMMATURE GRAN ABSOLUTE AUTO 0.04 K/mm3 (0.00-0.10); IMMATURE GRAN PERCENT AUTO 1 % (0-1); LYMPHOCYTES ABSOLUTE AUTO 1.28 K/mm3 (0.84-5.20); LYMPHOCYTES PERCENT AUTO 17 % (21-46); MONOCYTES ABSOLUTE AUTO 0.19 K/mm3 (0.16-1.47); MONOCYTES PERCENT AUTO 3 % (4-13); Mean Corpuscular HGB Conc 29.8 g/dL (31.5-36.5); Mean Corpuscular Volume 89 fL (80-100); NEUTROPHILS ABSOLUTE AUTO 5.81 K/mm3 (1.96-9.15); NEUTROPHILS PERCENT AUTO 77 % (41-73); NRBC ABSOLUTE 0.03 K/mm3 (0.00-0.02); NRBC Auto 0.4 /100 WBC (0.0-0.2); Platelet Count 119 K/mm3 (150-400); RDW Coefficient Variation 17.6 % (11.7-14.2); RDW Standard Deviation 56.7 fL (35.1-46.3)
[2025-02-21 17:46] LABS: Anion Gap 4.0 mmol/L (3-11); Blood Urea Nitrogen 28.0 mg/dL (8-24); CO2, Blood 30.0 mmol/L (21-32); Calcium, Blood 10.6 mg/dL (8.5-10.1); Chloride, Blood 109.0 mmol/L (98-108); Creatinine, Blood 1.65 mg/dL (0.60-1.20); Glucose, Blood 163.0 mg/dL (70-99); Potassium, Blood 3.9 mmol/L (3.5-5.5); Sodium, Blood 139.0 mmol/L (136-145)
[2025-02-21 20:30] VITALS: BP 168/131
== END 2025-02-21 21:30 | disposition home or self-care (01) ==
LOC: ER 16:38
PROVIDERS: Emergency Medicine
DX: I13.0 Hypertensive heart and chronic kidney disease with heart failure and stage 1 through stage 4 chronic kidney disease, or unspecified chronic kidney disease (principal); E11.22 Type 2 diabetes mellitus with diabetic chronic kidney disease; I50.9 Heart failure, unspecified; N18.30 Chronic kidney disease, stage 3 unspecified; Z88.8 Allergy status to other drugs, medicaments and biological substances; Z79.4 Long term (current) use of insulin; Z79.899 Other long term (current) drug therapy; E78.5 Hyperlipidemia, unspecified; Z87.891 Personal history of nicotine dependence
CPT/HCPCS: 71045; 80048; 83880; 84484; 85025; 93005; 93010; 96374; 99285-25; J1938

== ENCOUNTER → 2025-03-26 | Outpatient (CLI) | payer OTHER ==
[2025-03-26 15:02] LABS: Source, Urine Voided
[2025-03-26 15:14] LABS: Bilirubin, Urine Neg (Neg); Color, Urine Yellow (P-Yellow); Glucose Qualitative, Urine Neg (Neg); Ketones, Urine Neg (Neg); Leukocyte Esterase, Urine 2+ (Neg); Protein, Urine 3+ (Neg); Specific Gravity, Urine 1.015 (1.003-1.022); Urobilinogen, Urine NORM (Normal)
[2025-03-26 15:39] LABS: Red Blood Cells, Urine 0-2 /hpf (0-2)
== END ==
LOC: LAB SHORT 13:00 → LAB 13:00
PROVIDERS: Hospitalist
DX: R33.9 Retention of urine, unspecified (principal)
CPT/HCPCS: 81001; 87077; 87086; 87186